=== PATIENT | female | born 1950 | race Caucasian/White ===

== ENCOUNTER 2025-02-10 11:11 | Outpatient (AMB) | payer MEDICARE, SELFPAY ==
[2025-02-10 11:19] VITALS: BMI 29.2
--- NOTE | 2025-02-10 11:19 | A.PHYSOV ---
Vital Signs 02/10/25 11:19 Height 5 ft 3 in Weight 165 lb BMI 29.2 Intake Visit Reasons: B/L Shoulder Injections Intake Note: Patient is a 74 year old female her today for bilateral shoulder injections. Promotional Advertising Assistant Required: No Allergies acetaminophen (From Percocet) Allergy (Unknown, Verified 02/10/25 11:29) Unknown oxycodone (From Percocet) Allergy (Unknown, Verified 02/10/25 11:29) Unknown Medication List - Last Reconciled 02/10/25 by Lesly Lynn RN diltiazem HCl CD 240 mg PO DAILY indapamide 2.5 mg PO DAILY levothyroxine 125 mcg PO DAILY valsartan 320 mg PO DAILY [facility] Medical History (Updated 02/10/25 @ 13:50 by LINDA Andrews) Implantable loop recorder present (~07/2023) Surgical History History of cholecystectomy History of cancer surgery H/O section (Unknown) Social History (Updated 02/10/25 @ 11:22 by Rochelle Nicholson MA) Alcohol intake: never Patient Tobacco Use Status: Never used Tobacco Physical Exam Vital Signs: BMI result Body Mass Index 29.2 Office Procedures AMB Shoulder Injection AMB Shoulder Injection Procedure Details: Bilateral Glenohumeral joint injection: The patient was educated about risks, complications and benefits including but not limited to increased serum glucose, infection, nerve damage, bleeding, tendon/ligament damage and pain. We agree with a glenohumeral injection is the next best step in the treatment plan. Verbal consent was obtained. Using aseptic technique, the skin was cleansed with Betadine. Ethyl chloride was used to desensitize the skin. Using a posterior approach, 40 mg of Kenalog and 3 mL 2% lidocaine were injected using a 25-gauge inch and a half needle into the left glenohumeral joint. The patient tolerated the procedure well without immediate complication. The procedure was repeated on the right. Postinjection instructions were given. Shoulder Injection - : Bilateral All charges added?: Procedure code (CPT) selection complete Office Meds Kenalog 40 mg/mL suspension for injection Performing Provider: LINDA Andrews Performing Location: [facility] Administered by: LINDA Andrews on 02/10/25 13:29 Dose Route Admin Location Dispensed Lot Number Expiration Date [facility] Ophthalmic Surgeon 80 mg intra-articular 2 mL [id number] [employer] Total Dispensed Waste 2 mL 0 % lidocaine (PF) 20 mg/mL (2 %) injection solution Performing Provider: LINDA Andrews Performing Location: [facility] Administered by: LINDA Andrews on 02/10/25 13:29 Dose Route Admin Location Dispensed Lot Number Expiration Date [facility] Ophthalmic Surgeon 80 mg intra-articular shoulder 50 mL [id number] Total Dispensed Waste 50 mL 0 % Assessment & Plan Assessment & Plan (1) Osteoarthritis, shoulder: Code(s): M19.019 - Primary osteoarthritis, unspecified shoulder Category: Medical Qualifiers: Osteoarthritis type: primary Laterality: bilateral Qualified Code(s): M19.011 - Primary osteoarthritis, right shoulder; M19.012 - Primary osteoarthritis, left shoulder Plan: Ms Kiran is a 74-year-old female seen in evaluation today for bilateral glenohumeral joint osteoarthritis. The patient consented to bilateral glenohumeral injection. She was given post-injection instructions. Recommend: Moist heat compresses 15 minutes 5 times daily. She should avoid repetitive overhead activities. Recommend follow-up with our office in 3 months as needed. Thank you for allowing me to participate in the care of your patient. Orders: Orders AMB Shoulder Injection Today M19.019 - Primary osteoarthritis, unspecified shoulder Coding Level of Care Code Procedure Only Diagnoses Primary osteoarthritis of both shoulders M19.011; M19.012 Osteoarthritis type: primary Laterality: bilateral CPT Codes AMB Shoulder Injection - Hip/Bursa Injection - : Bilateral ([id number])
--- OUTSIDE RECORDS SUMMARY | 2025-02-10 13:29 | XMS_ITS | Clinical Summary ---
Author Organization [facility] Address [address] [place] [address] Care Team Providers Care Flitch Hanger Name Role Phone Barbara Kunz MD Primary Care Provider Unavailabl e Allergies Active Allergy Reactions Criticality Noted Date Comments Oxycodone-Acetaminophen 04/29/2018 Medications Medication Sig Dispensed Refills Start Date End Date Status dilTIAZem (dilTIAZem CD) 240 MG 24 hr capsule Take 240 mg by mouth daily. 0 Active irbesartan (AVAPRO) 300 MG tablet Take 300 mg by mouth every night at bedtime. 0 Active Levothyroxine Sodium 137 MCG CAPS Take by mouth. 0 Active metFORMIN (GLUCOPHAGE) tablet 500 mg Take 500 mg by mouth 2 (two) times a day with meals. 0 Active vitamin B-12 (CYANOCOBALAMIN) 100 MCG tablet Take 50 mcg by mouth daily. 0 Active simvastatin (ZOCOR) tablet 10 mg Take 10 mg by mouth every night at bedtime. 0 Active Budesonide-Formoterol Fumarate (SYMBICORT IN) Inhale into the lungs. 0 Active warfarin (COUMADIN) 5 MG tablet Take 5 mg by mouth daily. 0 Active indapamide (LOZOL) 2.5 MG tablet Take 2.5 mg by mouth every morning. 0 Active Active Problems No known active problems Social History Tobacco Use Types Packs/Day Years Used Date Smoking Tobacco: Former Smokeless Tobacco: Never Alcohol Use Standard Drinks/Week Comments No 0 (1 standard drink = 0.6 oz pur e alcohol) Sex and Gender Information Value Date Recorded Sex Assigned at Not on file Gender Identity Not on file Sexual Orientation Not on file Job Start Date Occupation Industry Not on file Not on file Not on file Last Filed Vital Signs Vital Sign Reading Time Taken Comments Blood Pressure 160/83 04/29/2018 9:27 AM EST Pulse 106 04/29/2018 9:27 AM EST Temperature - - Respiratory Rate - - Oxygen Saturation - - Inhaled Oxygen Concentration - - Weight 98 kg (216 lb) 04/29/2018 9:26 AM EST Height 162.6 cm (5' 4 ) 04/29/2018 9:26 AM EST Body Mass Index 37.08 04/29/2018 9:26 AM EST Plan of Treatment Health Maintenance Due Date Last Done Comments Hepatitis C Screening 1950 COVID-19 Vaccine (#1) 03/25/1951 Depression Screening 1960 Preventative Health Evaluation 1966 DTap / Tdap / Td (1 - Tdap) 09/24/1967 Shingrix-Zoster Vaccine (1 of 2) 1998 Fall Risk Assessment 2013 Osteoporosis Screening (DEXA Scan) 2013 Pneumococcal Vaccine (1 of 1 - PCV) 2013 RSV Adult > 60+ Yrs or Pregn ant (1 - 1-dose 75+ series) 09/24/2023 Influenza Vaccine (#1) 2024 Hepatitis B Vaccines Aged Out No long er eligible based on patient's age to complete this topic RSV Ped < 20 months Aged Out No longe r eligible based on patient's age to complete this topic Care Teams Flitch Hanger Relationship Specialty Start Date End Date Barbara Kunz MD PCP - General Internal Medicine 03/24/18
--- OUTSIDE RECORDS SUMMARY | 2025-02-10 13:29 | XMS_ITS ---
Author Name [facility] Organization Unknown Care Team Organization Name Specialty Phone Email Start Date End Da te [facility] YANETH DUMONT Primary Care 02/11/2022 11/23/2023
== END 2025-02-10 11:44 | disposition home or self-care (01) ==
PROVIDERS: PCP Internal Medicine; Visit Provider Physician Assistant
DX: M19.011 Primary osteoarthritis, right shoulder (principal); M19.012 Primary osteoarthritis, left shoulder
CPT/HCPCS: 20610

== ENCOUNTER → 2025-02-10 11:11 | Outpatient (BNVA) | payer MEDICARE, SELFPAY | PROVIDERS: PCP Internal Medicine; Visit Provider Physician Assistant | DX: M19.011 Primary osteoarthritis, right shoulder (principal); M19.012 Primary osteoarthritis, left shoulder | CPT/HCPCS: 20610; J2003; J3301 ==